=== PATIENT | female | born 1995 | race Caucasian/White ===

== ENCOUNTER 2022-02-18 18:58 | Inpatient (IN) | payer MEDICAID ==
[~2022-02-18] VITALS: Ht 154.9 cm; Wt 57.6 kg
[2022-02-18] MEDS ORDERED: HALOPERIDOL 5 MG TABLET PO PRN (20:00)
[2022-02-18 20:45] VITALS: BP 103/65
[2022-02-18] MEDS ORDERED: BENZOCAINE/MENTHOL LOZENGE PO PRN (22:00)
[2022-02-18] MEDS ORDERED: ACETAMINOPHEN 325 MG TABLET PO PRN (22:00)
[2022-02-18] MEDS ORDERED: PETROLATUM,WHITE 28 GM JELLY TP PRN (22:00)
[2022-02-18] MEDS ORDERED: INSULIN LISPRO 100 UNITS/ML SQ PRN (22:00)
[2022-02-18] MEDS ORDERED: GLUCAGON,HUMAN RECOMBINANT 1 MG VIAL IM PRN (22:00)
[2022-02-18] MEDS ORDERED: MAG HYDROX/AL HYDROX/SIMETH ES 30 ML SUSPENSION UDCUP PO PRN (22:00)
[2022-02-18] MEDS ORDERED: BACITRACIN 28 GM OINTMENT TP PRN (22:00)
[2022-02-18] MEDS ORDERED: ALBUTEROL SULFATE HFA 90 MCG/PUFF 8 GM INHALER IH PRN (22:00)
[2022-02-18] MEDS ORDERED: MAGNESIUM HYDROXIDE SUSPENSION 30 ML UDCUP PO PRN (22:00)
[2022-02-18] MEDS ORDERED: LOPERAMIDE HCL 2 MG CAPSULE PO PRN (22:00)
[2022-02-18] MEDS ORDERED: CloNIDine HCL 0.1 MG TABLET PO PRN (22:00)
[2022-02-18] MEDS ORDERED: ONDANSETRON HCL 4 MG TABLET PO PRN (22:00)
[2022-02-19 06:57] LABS: GLUCOMETER DEV NAME(LOC) BV2X.2; GLUCOSE,POINT OF CARE 88 MG/DL (70-110)
[2022-02-19 07:26] LABS: BASOPHILS % (AUTO) 0.6 % (0.0-2.0); HEMATOCRIT 41.3 % (36-46); HEMOGLOBIN 13.7 g/dL (12.0-16.0); LYMPHOCYTES % (AUTO) 40.9 % (22.0-44.0); MEAN CORPUSCULAR HEMOGLOBIN 30.4 pg (26.0-34.0); MEAN CORPUSCULAR HGB CONC 33.1 G/dL (31.0-37.0); MEAN CORPUSCULAR VOLUME 92 fL (80-100); MONOCYTES # (AUTO) 0.5 K/uL (0.1-1.0); MONOCYTES % (AUTO) 9.6 % (2.0-9.0); NEUTROPHILS # (AUTO) 2.3 K/uL (1.8-7.7); NEUTROPHILS % (AUTO) 46.9 % (40.0-70.0); PLATELET COUNT (AUTO) 338 K/uL (150-450); RED BLOOD CELL COUNT(AUTO) 4.51 MIL/uL (4.00-5.20); RED CELL DISTRIBUTION WIDTH 12.9 % (11.5-14.5)
[2022-02-19 07:47] LABS: ALANINE AMINOTRANSFERASE 12 U/L (12-78); ALBUMIN 3.3 g/dL (3.4-5.0); ALKALINE PHOSPHATASE 81 U/L (46-116); ANION GAP 2 mmol/L (8-16); ASPARTATE AMINOTRANSFERASE 13 U/L (15-37); BILIRUBIN,TOTAL 0.2 mg/dL (0.1-1.0); CALCIUM, TOTAL 9.1 mg/dL (8.8-10.5); CARBON DIOXIDE 31 mmol/L (22-29); CHLORIDE 104 mmol/L (98-107); CHOL/HDL RATIO 2.9 (3.9-5.7); CHOLESTEROL 199 mg/dL (131-200); CREATININE 0.79 mg/dL (0.60-1.30); GLUCOSE,RANDOM 86 mg/dL (70-110); HDL CHOLESTEROL 68 mg/dL (40-60); LDL CHOL (CALC.) 117 mg/dL (0-130); POTASSIUM 4.3 mmol/L (3.5-5.1); SODIUM SERUM 137 mmol/L (136-145); TOTAL PROTEIN, SERUM 6.9 g/dL (6.4-8.2); TRIGLYCERIDES 68 mg/dL (15-150); UREA NITROGEN, BLOOD 17 mg/dL (7-18)
[2022-02-19 07:49] LABS: GLOMERULAR FILTR. RATE CALC > 60 mL/min (>60)
[2022-02-19 07:52] LABS: HEMOGLOBIN A1C 5.5 % (3.8-5.6)
[2022-02-19 08:39] LABS: FREE T4 (FREE THYROXINE) 1.16 ng/dL (0.76-1.46); HCG,QUANTITATIVE < 1 mIU/mL (0-6); THYROID STIMULATING HORMONE 1.33 uIU/mL (0.36-3.74)
[2022-02-19] MEDS: OMEPRAZOLE 20 MG CAPSULE PO SCH (08:51)
[2022-02-19] MEDS: DOCUSATE SODIUM 100 MG CAPSULE PO SCH (08:51)
[2022-02-19] MEDS: CEPHALEXIN MONOHYDRATE 500 MG CAPSULE PO SCH ×3 (08:51→16:26)
[2022-02-19 09:00] VITALS: BP 120/82
[2022-02-19] MEDS: RisperiDONE 1 MG TABLET PO SCH (20:58)
[2022-02-19] MEDS: DIVALPROEX SODIUM 500 MG DR TABLET PO SCH (20:58)
[2022-02-19 21:03] VITALS: BP 108/73
[2022-02-20 08:42] VITALS: BP 112/79
[2022-02-20] MEDS: OMEPRAZOLE 20 MG CAPSULE PO SCH (08:56)
[2022-02-20] MEDS: DIVALPROEX SODIUM 500 MG DR TABLET PO SCH ×2 (08:57→20:22)
[2022-02-20] MEDS: DOCUSATE SODIUM 100 MG CAPSULE PO SCH (08:57)
[2022-02-20] MEDS: CEPHALEXIN MONOHYDRATE 500 MG CAPSULE PO SCH ×3 (08:57→16:05)
[2022-02-20] MEDS: RisperiDONE 1 MG TABLET PO SCH ×2 (08:57→20:22)
[2022-02-20] MEDS: LORazepam 2 MG TABLET PO PRN (09:00)
[2022-02-20 20:14] VITALS: BP 118/65
[2022-02-21] MEDS: DIVALPROEX SODIUM 500 MG DR TABLET PO SCH ×2 (08:40→20:20)
[2022-02-21] MEDS: OMEPRAZOLE 20 MG CAPSULE PO SCH (08:40)
[2022-02-21] MEDS: DOCUSATE SODIUM 100 MG CAPSULE PO SCH (08:40)
[2022-02-21] MEDS: RisperiDONE 1 MG TABLET PO SCH ×2 (08:40→20:20)
[2022-02-21] MEDS: CEPHALEXIN MONOHYDRATE 500 MG CAPSULE PO SCH ×3 (08:40→16:31)
[2022-02-21 09:53] VITALS: BP 112/56
[2022-02-21 20:05] VITALS: BP 118/60
[2022-02-22] MEDS: DIVALPROEX SODIUM 500 MG DR TABLET PO SCH ×2 (08:31→20:13)
[2022-02-22] MEDS: DOCUSATE SODIUM 100 MG CAPSULE PO SCH (08:31)
[2022-02-22] MEDS: OMEPRAZOLE 20 MG CAPSULE PO SCH (08:31)
[2022-02-22] MEDS: CEPHALEXIN MONOHYDRATE 500 MG CAPSULE PO SCH ×3 (08:31→16:07)
[2022-02-22] MEDS: RisperiDONE 1 MG TABLET PO SCH ×2 (08:32→20:13)
[2022-02-22 10:38] VITALS: BP 122/72
[2022-02-22 18:25] VITALS: BP 118/70
[2022-02-23 05:11] VITALS: BP 110/68
[2022-02-23 08:24] VITALS: BP 101/63
[2022-02-23] MEDS: OMEPRAZOLE 20 MG CAPSULE PO SCH (08:39)
[2022-02-23] MEDS: CEPHALEXIN MONOHYDRATE 500 MG CAPSULE PO SCH ×3 (08:39→16:04)
[2022-02-23] MEDS: DOCUSATE SODIUM 100 MG CAPSULE PO SCH (08:39)
[2022-02-23] MEDS: DIVALPROEX SODIUM 500 MG DR TABLET PO SCH ×2 (08:39→20:13)
[2022-02-23] MEDS: RisperiDONE 1 MG TABLET PO SCH ×2 (08:39→20:13)
[2022-02-23 12:05] VITALS: BP 108/70
[2022-02-23] MEDS: LORazepam 2 MG TABLET PO PRN (12:17)
[2022-02-24 06:39] VITALS: BP 116/69
[2022-02-24] MEDS: DOCUSATE SODIUM 100 MG CAPSULE PO SCH (08:23)
[2022-02-24] MEDS: RisperiDONE 1 MG TABLET PO SCH ×3 (08:23→21:24)
[2022-02-24] MEDS: OMEPRAZOLE 20 MG CAPSULE PO SCH (08:23)
[2022-02-24] MEDS: DIVALPROEX SODIUM 500 MG DR TABLET PO SCH ×3 (08:23→21:25)
[2022-02-24 08:36] VITALS: BP 118/72
[2022-02-24] MEDS: LORazepam 2 MG TABLET PO PRN (09:34)
[2022-02-24 20:03] VITALS: BP 135/87
[2022-02-24 20:28] VITALS: BP 128/80
[2022-02-25 08:04] VITALS: BP 112/66
[2022-02-25] MEDS: DIVALPROEX SODIUM 500 MG DR TABLET PO SCH ×2 (08:06→20:33)
[2022-02-25] MEDS: DOCUSATE SODIUM 100 MG CAPSULE PO SCH (08:07)
[2022-02-25] MEDS: OMEPRAZOLE 20 MG CAPSULE PO SCH (08:07)
[2022-02-25] MEDS: RisperiDONE 1 MG TABLET PO SCH ×2 (08:07→20:33)
[2022-02-25] MEDS: LORazepam 2 MG TABLET PO PRN (08:10)
[2022-02-25 20:21] VITALS: BP 100/62
[2022-02-26 08:26] VITALS: BP 105/65
[2022-02-26] MEDS: DOCUSATE SODIUM 100 MG CAPSULE PO SCH (08:30)
[2022-02-26] MEDS: OMEPRAZOLE 20 MG CAPSULE PO SCH (08:30)
[2022-02-26] MEDS: RisperiDONE 1 MG TABLET PO SCH ×2 (08:30→20:36)
[2022-02-26] MEDS: DIVALPROEX SODIUM 500 MG DR TABLET PO SCH ×2 (08:30→20:36)
[2022-02-26 09:27] LABS: GLUCOMETER DEV NAME(LOC) POC.BV
[2022-02-26] MEDS: LORazepam 2 MG TABLET PO PRN (10:25)
[2022-02-26 20:25] VITALS: BP 100/68
[2022-02-27 08:10] VITALS: BP 101/67
[2022-02-27] MEDS: DIVALPROEX SODIUM 500 MG DR TABLET PO SCH ×2 (08:33→20:20)
[2022-02-27] MEDS: OMEPRAZOLE 20 MG CAPSULE PO SCH (08:33)
[2022-02-27] MEDS: DOCUSATE SODIUM 100 MG CAPSULE PO SCH (08:33)
[2022-02-27] MEDS: RisperiDONE 1 MG TABLET PO SCH ×2 (08:33→20:20)
[2022-02-28] MEDS: OMEPRAZOLE 20 MG CAPSULE PO SCH (08:02)
[2022-02-28] MEDS: DOCUSATE SODIUM 100 MG CAPSULE PO SCH (08:02)
[2022-02-28] MEDS: RisperiDONE 1 MG TABLET PO SCH ×2 (08:02→20:46)
[2022-02-28] MEDS: LITHIUM CARBONATE 300 MG CAPSULE PO SCH ×2 (08:02→16:25)
[2022-02-28] MEDS: DIVALPROEX SODIUM 500 MG DR TABLET PO SCH ×2 (08:02→16:25)
[2022-02-28 08:11] VITALS: BP 106/63
[2022-02-28] MEDS: IBUPROFEN 600 MG TABLET PO PRN (10:48)
[2022-02-28 20:33] VITALS: BP 110/72
[2022-03-01 04:21] VITALS: BP_SYST 109; BP_DIAS 18; BP_DIAS 78
[2022-03-01 08:27] VITALS: BP 100/63
[2022-03-01] MEDS: LITHIUM CARBONATE 300 MG CAPSULE PO SCH ×2 (09:03→16:58)
[2022-03-01] MEDS: DOCUSATE SODIUM 100 MG CAPSULE PO SCH (09:03)
[2022-03-01] MEDS: DIVALPROEX SODIUM 500 MG DR TABLET PO SCH ×2 (09:03→16:58)
[2022-03-01] MEDS: OMEPRAZOLE 20 MG CAPSULE PO SCH (09:03)
[2022-03-01] MEDS: RisperiDONE 1 MG TABLET PO SCH ×2 (09:04→20:31)
[2022-03-01] MEDS: LORazepam 2 MG TABLET PO PRN (14:38)
[2022-03-01 20:18] VITALS: BP 112/61
[2022-03-01] MEDS: ZOLPIDEM TARTRATE 10 MG TABLET PO PRN (20:36)
[2022-03-02] MEDS: DIVALPROEX SODIUM 500 MG DR TABLET PO SCH ×2 (08:39→17:03)
[2022-03-02] MEDS: DOCUSATE SODIUM 100 MG CAPSULE PO SCH (08:39)
[2022-03-02] MEDS: OMEPRAZOLE 20 MG CAPSULE PO SCH (08:39)
[2022-03-02] MEDS: LITHIUM CARBONATE 300 MG CAPSULE PO SCH ×2 (08:39→17:04)
[2022-03-02] MEDS: RisperiDONE 1 MG TABLET PO SCH ×2 (08:40→20:37)
[2022-03-02 10:24] VITALS: BP 96/59
[2022-03-02] MEDS: LORazepam 2 MG TABLET PO PRN (15:02)
[2022-03-02 21:49] VITALS: BP 85/54
[2022-03-03] MEDS: DIVALPROEX SODIUM 500 MG DR TABLET PO SCH ×2 (08:31→16:04)
[2022-03-03] MEDS: RisperiDONE 1 MG TABLET PO SCH ×2 (08:32→20:15)
[2022-03-03] MEDS: OMEPRAZOLE 20 MG CAPSULE PO SCH (08:32)
[2022-03-03] MEDS: DOCUSATE SODIUM 100 MG CAPSULE PO SCH ×2 (08:32→09:00)
[2022-03-03] MEDS: LITHIUM CARBONATE 300 MG CAPSULE PO SCH ×2 (08:32→16:04)
[2022-03-03 09:14] VITALS: BP 94/60
[2022-03-03] MEDS: LORazepam 2 MG TABLET PO PRN ×2 (11:27→15:33)
[2022-03-04 07:34] LABS: LITHIUM 0.42 mmol/L (0.60-1.20)
[2022-03-04] MEDS: OMEPRAZOLE 20 MG CAPSULE PO SCH (08:22)
[2022-03-04] MEDS: LITHIUM CARBONATE 300 MG CAPSULE PO SCH ×2 (08:22→16:05)
[2022-03-04] MEDS: DIVALPROEX SODIUM 500 MG DR TABLET PO SCH ×2 (08:22→16:05)
[2022-03-04] MEDS: RisperiDONE 1 MG TABLET PO SCH ×2 (08:22→20:11)
[2022-03-04] MEDS: DOCUSATE SODIUM 100 MG CAPSULE PO SCH (08:22)
[2022-03-04 08:57] VITALS: BP 100/60
[2022-03-04 08:59] VITALS: BP 103/66
[2022-03-04] MEDS: LORazepam 2 MG TABLET PO PRN ×2 (09:00→20:11)
[2022-03-05 06:47] VITALS: BP 109/67
[2022-03-05 08:08] VITALS: BP 109/68
[2022-03-05] MEDS: DOCUSATE SODIUM 100 MG CAPSULE PO SCH (08:38)
[2022-03-05] MEDS: OMEPRAZOLE 20 MG CAPSULE PO SCH (08:38)
[2022-03-05] MEDS: RisperiDONE 1 MG TABLET PO SCH ×2 (08:38→20:19)
[2022-03-05] MEDS: LITHIUM CARBONATE 300 MG CAPSULE PO SCH ×2 (08:38→16:19)
[2022-03-05] MEDS: DIVALPROEX SODIUM 500 MG DR TABLET PO SCH ×2 (08:38→16:20)
[2022-03-05] MEDS: LORazepam 2 MG TABLET PO PRN (14:11)
[2022-03-05 14:21] LABS: GLUCOMETER DEV NAME(LOC) POC.BV
[2022-03-06 08:43] VITALS: BP 100/61
[2022-03-06] MEDS: OMEPRAZOLE 20 MG CAPSULE PO SCH (08:58)
[2022-03-06] MEDS: LITHIUM CARBONATE 300 MG CAPSULE PO SCH ×2 (08:58→16:38)
[2022-03-06] MEDS: DIVALPROEX SODIUM 500 MG DR TABLET PO SCH ×2 (08:58→16:38)
[2022-03-06] MEDS: DOCUSATE SODIUM 100 MG CAPSULE PO SCH (08:58)
[2022-03-06] MEDS: RisperiDONE 1 MG TABLET PO SCH ×2 (08:58→20:35)
[2022-03-06] MEDS: LORazepam 2 MG TABLET PO PRN (14:36)
[2022-03-06 21:23] VITALS: BP 116/68
[2022-03-07] MEDS: DIVALPROEX SODIUM 500 MG DR TABLET PO SCH ×2 (08:19→17:18)
[2022-03-07] MEDS: OMEPRAZOLE 20 MG CAPSULE PO SCH (08:19)
[2022-03-07] MEDS: LITHIUM CARBONATE 300 MG CAPSULE PO SCH ×2 (08:19→17:18)
[2022-03-07] MEDS: RisperiDONE 1 MG TABLET PO SCH ×2 (08:20→20:25)
[2022-03-07] MEDS: DOCUSATE SODIUM 100 MG CAPSULE PO SCH (08:24)
[2022-03-07 09:04] VITALS: BP 106/63
[2022-03-07] MEDS: LORazepam 2 MG TABLET PO PRN (15:13)
[2022-03-08] MEDS: DIVALPROEX SODIUM 500 MG DR TABLET PO SCH ×2 (08:43→17:22)
[2022-03-08] MEDS: LORazepam 2 MG TABLET PO PRN ×2 (08:43→14:44)
[2022-03-08] MEDS: LITHIUM CARBONATE 300 MG CAPSULE PO SCH ×2 (08:43→17:22)
[2022-03-08] MEDS: OMEPRAZOLE 20 MG CAPSULE PO SCH (08:43)
[2022-03-08] MEDS: RisperiDONE 1 MG TABLET PO SCH ×2 (08:43→21:47)
[2022-03-08] MEDS: DOCUSATE SODIUM 100 MG CAPSULE PO SCH (08:43)
[2022-03-08 08:46] VITALS: BP 105/60
[2022-03-08 20:16] VITALS: BP 110/61
[2022-03-08] MEDS: ZOLPIDEM TARTRATE 10 MG TABLET PO PRN (21:47)
[2022-03-09] MEDS: RisperiDONE 1 MG TABLET PO SCH ×2 (08:18→20:43)
[2022-03-09] MEDS: DOCUSATE SODIUM 100 MG CAPSULE PO SCH (08:18)
[2022-03-09] MEDS: LITHIUM CARBONATE 300 MG CAPSULE PO SCH ×2 (08:18→17:31)
[2022-03-09] MEDS: OMEPRAZOLE 20 MG CAPSULE PO SCH (08:18)
[2022-03-09] MEDS: DIVALPROEX SODIUM 500 MG DR TABLET PO SCH ×2 (08:18→17:30)
[2022-03-09 08:31] VITALS: BP 118/76
[2022-03-09] MEDS: LORazepam 2 MG TABLET PO PRN ×2 (10:40→16:48)
[2022-03-09 20:18] VITALS: BP 102/63
[2022-03-10] MEDS: DIVALPROEX SODIUM 500 MG DR TABLET PO SCH ×2 (08:07→17:14)
[2022-03-10] MEDS: RisperiDONE 1 MG TABLET PO SCH ×2 (08:07→20:15)
[2022-03-10] MEDS: LITHIUM CARBONATE 300 MG CAPSULE PO SCH ×2 (08:07→17:13)
[2022-03-10] MEDS: OMEPRAZOLE 20 MG CAPSULE PO SCH (08:08)
[2022-03-10 08:34] VITALS: BP 98/62
[2022-03-10] MEDS: DOCUSATE SODIUM 100 MG CAPSULE PO SCH (09:14)
[2022-03-10 13:28] VITALS: BP 108/74
[2022-03-10] MEDS: LORazepam 2 MG TABLET PO PRN (13:28)
[2022-03-11] MEDS: DOCUSATE SODIUM 100 MG CAPSULE PO SCH (08:13)
[2022-03-11] MEDS: RisperiDONE 1 MG TABLET PO SCH ×2 (08:13→22:08)
[2022-03-11] MEDS: DIVALPROEX SODIUM 500 MG DR TABLET PO SCH ×2 (08:13→16:31)
[2022-03-11] MEDS: OMEPRAZOLE 20 MG CAPSULE PO SCH (08:13)
[2022-03-11] MEDS: LITHIUM CARBONATE 300 MG CAPSULE PO SCH ×2 (08:13→16:31)
[2022-03-11 08:16] VITALS: BP 100/62
[2022-03-11 12:00] VITALS: BP 110/60
[2022-03-11] MEDS: LORazepam 2 MG TABLET PO PRN (12:01)
[2022-03-11 21:36] VITALS: BP 115/65
[2022-03-12] MEDS: LITHIUM CARBONATE 300 MG CAPSULE PO SCH ×2 (08:11→16:06)
[2022-03-12] MEDS: DIVALPROEX SODIUM 500 MG DR TABLET PO SCH ×2 (08:11→16:06)
[2022-03-12] MEDS: RisperiDONE 1 MG TABLET PO SCH ×2 (08:11→20:40)
[2022-03-12] MEDS: DOCUSATE SODIUM 100 MG CAPSULE PO SCH (08:11)
[2022-03-12] MEDS: OMEPRAZOLE 20 MG CAPSULE PO SCH (08:11)
[2022-03-12 08:29] VITALS: BP 100/61
[2022-03-12 10:43] VITALS: BP 104/68
[2022-03-12] MEDS: IBUPROFEN 600 MG TABLET PO PRN (10:43)
[2022-03-13] MEDS: DIVALPROEX SODIUM 500 MG DR TABLET PO SCH ×2 (08:08→16:16)
[2022-03-13] MEDS: DOCUSATE SODIUM 100 MG CAPSULE PO SCH (08:08)
[2022-03-13] MEDS: OMEPRAZOLE 20 MG CAPSULE PO SCH (08:08)
[2022-03-13] MEDS: LITHIUM CARBONATE 300 MG CAPSULE PO SCH ×2 (08:08→16:16)
[2022-03-13] MEDS: RisperiDONE 1 MG TABLET PO SCH ×2 (08:08→21:39)
[2022-03-13 08:52] VITALS: BP 100/61
[2022-03-13 20:49] VITALS: BP 110/71
[2022-03-14] MEDS: OMEPRAZOLE 20 MG CAPSULE PO SCH (08:22)
[2022-03-14] MEDS: DIVALPROEX SODIUM 500 MG DR TABLET PO SCH ×2 (08:22→16:17)
[2022-03-14] MEDS: LITHIUM CARBONATE 300 MG CAPSULE PO SCH ×2 (08:22→16:17)
[2022-03-14] MEDS: RisperiDONE 1 MG TABLET PO SCH ×2 (08:22→20:23)
[2022-03-14] MEDS: DOCUSATE SODIUM 100 MG CAPSULE PO SCH (08:23)
[2022-03-14 08:46] VITALS: BP 104/63
[2022-03-14] MEDS: ZOLPIDEM TARTRATE 10 MG TABLET PO PRN (20:23)
[2022-03-14 22:31] VITALS: BP 118/54
[2022-03-15 08:00] VITALS: BP 118/74
[2022-03-15] MEDS: DOCUSATE SODIUM 100 MG CAPSULE PO SCH (08:32)
[2022-03-15] MEDS: RisperiDONE 1 MG TABLET PO SCH ×2 (08:32→20:24)
[2022-03-15] MEDS: OMEPRAZOLE 20 MG CAPSULE PO SCH (08:34)
[2022-03-15] MEDS: DIVALPROEX SODIUM 500 MG DR TABLET PO SCH ×2 (08:34→16:09)
[2022-03-15] MEDS: LITHIUM CARBONATE 300 MG CAPSULE PO SCH ×2 (08:34→16:08)
[2022-03-16 07:14] VITALS: BP 100/62
[2022-03-16 08:20] VITALS: BP 114/74
[2022-03-16] MEDS: LITHIUM CARBONATE 300 MG CAPSULE PO SCH (08:24)
[2022-03-16] MEDS: RisperiDONE 1 MG TABLET PO SCH (08:24)
[2022-03-16] MEDS: DIVALPROEX SODIUM 500 MG DR TABLET PO SCH (08:24)
[2022-03-16] MEDS: DOCUSATE SODIUM 100 MG CAPSULE PO SCH (08:24)
[2022-03-16] MEDS: OMEPRAZOLE 20 MG CAPSULE PO SCH (08:24)
[2022-03-16 09:06] LABS: GLUCOMETER DEV NAME(LOC) POC.BV
[2022-03-16] MEDS ORDERED: DIVA-112 PO (11:11)
[2022-03-16] MEDS ORDERED: LITH300C3 PO (11:11)
[2022-03-16] MEDS ORDERED: RISP1TAB98 PO (11:11)
== END 2022-03-16 13:54 | disposition home or self-care (01) | DRG 750 ==
LOC: B2S 20:00 → B3A 02-19 17:50
PROVIDERS: ADMIT Psychiatry & Neurology Psychiatry; ATTEND Psychiatry & Neurology Psychiatry
DX: F25.9 Schizoaffective disorder, unspecified (principal); F12.10 Cannabis abuse, uncomplicated; F15.90 Other stimulant use, unspecified, uncomplicated; F41.9 Anxiety disorder, unspecified; G47.00 Insomnia, unspecified; K59.00 Constipation, unspecified; K21.9 Gastro-esophageal reflux disease without esophagitis; Z20.822 Contact with and (suspected) exposure to COVID-19
CPT/HCPCS: 80053; 80061; 80164; 80178; 82962; 83036; 84439; 84443; 84702; 85025; 87081